=== PATIENT | female | born 1980 | race Caucasian/White ===

== ENCOUNTER 2017-06-27 13:46 | Emergency (ER) | payer OTHER ==
[~2017-06-27] VITALS: Ht 157.5 cm; Wt 68.0 kg
[2017-06-27] MEDS ORDERED: LORA1TAB3 PO (14:33)
[2017-06-27] MEDS ORDERED: IBUPROFEN 800 MG TABLET PO ONE (15:00)
[2017-06-27 16:02] VITALS: BP 130/89
== END 2017-06-27 16:18 | disposition home or self-care (01) ==
LOC: EMS 13:47
DX: M25.531 Pain in right wrist (principal); F41.9 Anxiety disorder, unspecified; R06.02 Shortness of breath; R51 Headache; I10 Essential (primary) hypertension; Z79.899 Other long term (current) drug therapy
CPT/HCPCS: 99284